=== PATIENT | male | born 1975 | race Caucasian/White ===

== ENCOUNTER 2021-07-25 13:31 | Outpatient (CLI) | payer BC, SELFPAY ==
--- NOTE | ~2021-07-25 | XR_ITS ---
EXAM: XR abdomen/kub 1V HISTORY: Other microscopic hematuria COMPARISON: None available FINDINGS: Clear lung bases. Normal bowel gas pattern. No organomegaly. No abnormal abdominal calcifi cation. Vascular calcification over the left pelvis. Regional bones and soft tissues normal for age. IMPRESSION: Normal abdominal radiograph findings. Reviewed, dictated and finalized at location K.
--- NOTE | ~2021-07-25 | US_ITS ---
EXAMINATION: US renal BI EXAM DATE: 07/25/2021 13:51 INDICATION: Other microscopic hematuria. TECHNIQUE: Multiple grayscale and Doppler images of the kidneys were obtained (by a technologist who performed the scan) and subsequently reviewed. There is no prior study for comparison. FINDINGS: Right kidney: There is normal contour and echogenicity. It measures 12.9 x 5.4 x 6.0 centimeters. T here are no focal renal lesions identified. There is no hydronephrosis. Left kidney: There is normal contour and echogenicity. It measures 13.1 x 5.4 x 7.1 centimeters. The re is echogenic focus with shadowing measuring about 1 cm, probably nephrolithiasis. There is no hy dronephrosis. Bladder unremarkable. IMPRESSION: 1. Probable left nephrolithiasis. 2. No hydronephrosis. Reviewed, dictated and finalized at location A.
== END 2021-07-25 13:32 ==
PROVIDERS: PCP Family Medicine; Visit Provider Family Medicine
DX: R31.29 Other microscopic hematuria (principal); Z87.442 Personal history of urinary calculi
CPT/HCPCS: 74018; 76775